=== PATIENT | male | born 2005 | race Two or more races ===

== ENCOUNTER 2024-07-04 19:20 | Emergency (ER) | payer OTHER ==
[~2024-07-04] VITALS: Ht 167.6 cm; Wt 68.0 kg
== END 2024-07-04 21:07 | disposition home or self-care (01) ==
LOC: ER 19:20 → EMR PED 19:20
DX: R53.81 Other malaise (principal); T63.691A Toxic effect of contact with other venomous marine animals, accidental (unintentional), initial encounter